=== PATIENT | female | born 1980 | race Caucasian/White ===

== ENCOUNTER → 2017-04-22 | Outpatient (CLI) | payer BC, OTHER ==
[~2017-04-22] MED LIST: BCPILLS PO; PRENTAB26 PO
== END | disposition home or self-care (01) ==
LOC: C.PAPS 08:36
PROVIDERS: ATTEND Obstetrics & Gynecology
DX: Z01.419 Encounter for gynecological examination (general) (routine) without abnormal findings (principal); R87.610 Atypical squamous cells of undetermined significance on cytologic smear of cervix (ASC-US)